=== PATIENT | male | born 1945 | race African-American/Black ===

== ENCOUNTER 2025-06-04 16:01 | Inpatient (IN) | payer MEDICARE, OTHER ==
[~2025-06-04] VITALS: Ht 167.6 cm; Wt 87.5 kg
[2025-06-04 16:03] VITALS: O2SAT 97
[2025-06-04] MEDS: SODIUM CHLORIDE 0.9% 1,000 ML IV ONE (16:43)
[2025-06-04 16:45] LABS: BASOPHILS % 0.3 % (0.0-2.0); EOSINOPHILS % 0.4 % (0.0-5.0); HEMATOCRIT. 49.0 % (42.0-52.0); HEMOGLOBIN. 15.5 g/dL (14.0-18.0); LYMPHOCYTES % 17.2 % (20.0-50.0); MEAN PLATELET VOLUME 10.1 fl (7.4-10.4); MONOCYTES % 6.1 % (2.0-8.0); NEUTROPHILS % 76.0 % (40.0-76.0); PLATELET 139 x1000/uL (130-400); RED BLOOD CELL COUNT 5.45 mill/uL (4.7-6.1); RED CELL DISTRIBUTION WIDTH 14.7 % (11.6-14.6)
[2025-06-04 17:05] LABS: CREATININE 2.4 mg/dL (0.6-1.3); UREA NITROGEN BLOOD 14 mg/dL (9-23)
[2025-06-04 17:06] LABS: TROPONIN I HIGH SENSITIVITY 26 ng/L (3.0-53)
[2025-06-04 17:07] LABS: ASPARTATE AMINOTRANSFERASE 26 IU/L (<34); BILIRUBIN DIRECT 0.4 mg/dL (<=3.0); BILIRUBIN TOTAL 1.3 mg/dL (0.1-1.0); PROTEIN TOTAL 6.8 g/dL (6.0-8.3)
[2025-06-04] MEDS ORDERED: ACETAMINOPHEN 325MG TABLET PO PRN (21:45)
[2025-06-04] MEDS ORDERED: ONDANSETRON HCL 4MG/2ML INJ IV PRN (21:45)
[2025-06-04] MEDS ORDERED: DOCUSATE SODIUM 100MG CAPSULE PO PRN (21:45)
[2025-06-04] MEDS ORDERED: ASPIRIN 81MG TABLET PO SCH (22:00)
[2025-06-05] VITALS: BP 156/66; PULSE 64; RESP 18; TEMP 36.6; O2SAT 100
[2025-06-05 01:42] VITALS: BP 156/66; PULSE 64; RESP 18; TEMP 36.5848
[2025-06-05] MEDS ORDERED: EMPA10TA PO (02:17)
[2025-06-05] MEDS ORDERED: albuterol INH (02:17)
[2025-06-05] MEDS ORDERED: SERT-422 PO (02:17)
[2025-06-05] MEDS ORDERED: AMLO10TA80 PO (02:17)
[2025-06-05] MEDS ORDERED: SACU1TAB4 PO (02:17)
[2025-06-05] MEDS ORDERED: LIP40 PO (02:17)
[2025-06-05] MEDS ORDERED: APIX2.5T PO (02:17)
[2025-06-05] MEDS: PANTOPRAZOLE 40MG DR TABLET PO SCH (06:47)
[2025-06-05 07:03] LABS: CREATININE 1.8 mg/dL (0.6-1.3)
[2025-06-05 07:04] LABS: UREA NITROGEN BLOOD 14 mg/dL (9-23)
[2025-06-05 07:05] LABS: ASPARTATE AMINOTRANSFERASE 27 IU/L (<34)
[2025-06-05 07:06] LABS: BILIRUBIN TOTAL 1.3 mg/dL (0.1-1.0); PLATELET 134 x1000/uL (130-400); PROTEIN TOTAL 7.4 g/dL (6.0-8.3); RED BLOOD CELL COUNT 5.56 mill/uL (4.7-6.1); RED CELL DISTRIBUTION WIDTH 14.9 % (11.6-14.6)
[2025-06-05 08:00] VITALS: BP 150/85; PULSE 61; RESP 19; TEMP 36.5; O2SAT 98
[2025-06-05] MEDS: METOPROLOL SUCCINATE 25MG ER TABLET PO SCH (08:37)
[2025-06-05 10:44] LABS: CLARITY URINE CLEAR (CLEAR); COLOR URINE YELLOW (YELLOW); GLUCOSE URINE 3+ (NEGATIVE); KETONES URINE 1+ (NEGATIVE); LEUKOCYTE ESTERASE URINE 1+ (NEGATIVE); NITRITE URINE POSITIVE (NEGATIVE); OCCULT BLOOD URINE 1+ (NEGATIVE); PH URINE 5.0 (4.5-8.0); PROTEIN URINE TRACE (NEGATIVE); SPECIFIC GRAVITY URINE 1.018 (1.005-1.030); UROBILINOGEN URINE 0.2 E.U./dL (0.2-1.0)
[2025-06-05 11:26] LABS: SQUAMOUS EPITHELIAL CELL URINE RARE /lpf (RARE/1+); WBC URINE 25-50 /hpf (0-2)
[2025-06-05 11:27] LABS: BACTERIA URINE 3+
[2025-06-05 12:00] VITALS: BP 124/79; PULSE 63; RESP 19; TEMP 36.6; O2SAT 98
[2025-06-05] MEDS: CEFTRIAXONE 1GM/50ML 50 ML IV SCH (14:08)
[2025-06-05] MEDS: HYDRALAZINE HCL 50MG TABLET PO SCH (14:09)
[2025-06-05 16:00] VITALS: BP 133/77; PULSE 61; RESP 18; TEMP 36.5; O2SAT 97
[2025-06-05 20:00] VITALS: BP 143/79; PULSE 61; RESP 18; TEMP 36.5; O2SAT 98
[2025-06-05] MEDS: ATORVASTATIN CALCIUM 40MG TABLET PO SCH (21:03)
[2025-06-06 00:51] VITALS: BP 129/82; PULSE 64; RESP 20; TEMP 36.5; O2SAT 96
[2025-06-06 04:00] VITALS: BP 133/85; PULSE 60; RESP 18; TEMP 36.4; O2SAT 99
[2025-06-06 06:39] LABS: TROPONIN I HIGH SENSITIVITY 27 ng/L (3.0-53)
[2025-06-06] MEDS: ASPIRIN 81MG EC TABLET PO SCH (09:06)
[2025-06-06 11:31] LABS: BASOPHILS % 0.2 % (0.0-2.0); EOSINOPHILS % 1.1 % (0.0-5.0); HEMATOCRIT. 51.4 % (42.0-52.0); HEMOGLOBIN. 15.8 g/dL (14.0-18.0); LYMPHOCYTES % 30.0 % (20.0-50.0); MEAN PLATELET VOLUME 10.7 fl (7.4-10.4); MONOCYTES % 5.6 % (2.0-8.0); NEUTROPHILS % 63.1 % (40.0-76.0); PLATELET 136 x1000/uL (130-400); RED BLOOD CELL COUNT 5.72 mill/uL (4.7-6.1); RED CELL DISTRIBUTION WIDTH 14.5 % (11.6-14.6)
[2025-06-06] MEDS ORDERED: TAMS-54 MT (11:45)
[2025-06-06] MEDS ORDERED: LEVO250T74 MT (11:45)
[2025-06-06 11:46] LABS: CREATININE 1.8 mg/dL (0.6-1.3); UREA NITROGEN BLOOD 13 mg/dL (9-23)
[2025-06-06 11:48] LABS: PHOSPHORUS 2.6 mg/dL (2.5-4.9)
[2025-06-06] MEDS: TAMSULOSIN HCL 0.4MG SR CAPSULE PO SCH (12:41)
[2025-06-06 12:43] VITALS: BP 134/77; PULSE 60; RESP 18; TEMP 97.8
[2025-06-06 13:35] LABS: SODIUM URINE RANDOM 157.0 mEq/L
[2025-06-06 13:42] LABS: CREATININE URINE RANDOM 79.2 mg/dL
[2025-06-06 15:17] LABS: OSMOLALITY URINE 595.0 mOsm/kg (500-850)
[2025-06-09 08:07] LABS: *CREATININE RANDOM URINE 82.0 mg/dL (Not Estab.); MICROALBUMIN RANDOM URINE 34.0 ug/mL (Not Estab.); MICROALBUMIN/CREATININE RATIO 41.0 mg/g creat (0-29)
== END 2025-06-06 16:10 | disposition home health service (06) | DRG 73 ==
LOC: ER 16:01 → 8WST 18:25 → EDBEDREQTM 18:28 → EDBEDREQSVC 18:28 → EDBEDREQ 18:28 → EDBEDREQSVC 23:07 → ENRESERV 23:15
PROVIDERS: ADMIT Internal Medicine Pulmonary Disease; ATTEND Internal Medicine Pulmonary Disease
DX: G90.89 Other disorders of autonomic nervous system (principal); N17.0 Acute kidney failure with tubular necrosis; I48.92 Unspecified atrial flutter; I49.5 Sick sinus syndrome; E86.0 Dehydration; I48.91 Unspecified atrial fibrillation; N39.0 Urinary tract infection, site not specified; Z79.01 Long term (current) use of anticoagulants; I10 Essential (primary) hypertension; N18.30 Chronic kidney disease, stage 3 unspecified; E78.5 Hyperlipidemia, unspecified; I95.9 Hypotension, unspecified; E87.5 Hyperkalemia; N40.0 Benign prostatic hyperplasia without lower urinary tract symptoms; Z79.84 Long term (current) use of oral hypoglycemic drugs; Z79.899 Other long term (current) drug therapy; Z87.11 Personal history of peptic ulcer disease; Z86.73 Personal history of transient ischemic attack (TIA), and cerebral infarction without residual deficits; Z95.0 Presence of cardiac pacemaker
CPT/HCPCS: 36415; 71045; 76770; 80048; 80053; 80076; 80320; 81003; 82043; 82570; 83735; 83880; 83935; 84100; 84300; 84443; 84484; 85025; 85027; 85379; 87077; 87186; 93005; 93306; 93880; 93970; 96360; 96361; 97162; 99291; A4606; J0696; J7030; G0480